=== PATIENT | female | born 1990 | race African-American/Black ===

== ENCOUNTER 2019-08-01 19:42 | Emergency (ER) | payer OTHER ==
[~2019-08-01] VITALS: Ht 162.6 cm; Wt 64.0 kg
--- NOTE | 2019-08-01 19:51 | NUR ---
28 YEAR OLD FEMALE COMPLAINS OF ABDOMINAL PAIN SINCE 3AM. PATIENT STATES ABDOMINAL PAIN 10/10. BOWEL SOUNDS ACTIVE X4, TENDER ON PALPATION, NONDISTENDED, SOFT. PATIENT CRYING AND STATES "IT HURTS." PATIENT STATES SOMETIMES SHE WOULD PASS OUT FROM PAIN. PATIENT STATES SHE HAS BEEN VOMITTING CONSISTENTLY THROUGHOUT DAY. PATIENT AOX4, BREATHING EVEN AND LABORED, SKIN WARM AND DRY. BED IN LOWEST POSITION, LOCKED, BED RAIL UPX1.
[2019-08-01] MEDS ORDERED: NACL 0.9% 1,000 ML IV SCH (20:07)
[2019-08-01] MEDS ORDERED: MORPHINE SULFATE 4 MG/ML SYR IVP ONE (20:10)
[2019-08-01] MEDS ORDERED: ONDANSETRON 4 MG/2 ML VIAL IVP ONE (20:10)
[2019-08-01 20:39] LABS: BASOPHILS % (AUTO) 0.4 % (0.0-2.0); EOSINOPHILS % (AUTO) 0.4 % (0.0-4.0); HEMATOCRIT 41.5 % (36-48); HEMOGLOBIN 13.5 g/dL (12.0-16.0); LYMPHOCYTES # (AUTO) 2.5 K/uL (2.5-16.5); LYMPHOCYTES % (AUTO) 33.4 % (20.5-51.1); MEAN CORPUSCULAR HEMOGLOBIN 29 pg (27-31); MEAN CORPUSCULAR HGB CONC 33 g/dL (33-37); MEAN CORPUSCULAR VOLUME 88.1 fL (80-94); MONOCYTES # (AUTO) 0.4 K/uL (0.8-1.0); MONOCYTES % (AUTO) 5.3 % (1.7-9.3); NEUTROPHILS # (AUTO) 4.5 K/uL (1.8-7.7); NEUTROPHILS % (AUTO) 60.5 % (42.2-75.2); PLATELET COUNT (AUTO) 232 K/uL (140-450); RED BLOOD CELL COUNT(AUTO) 4.71 MIL/uL (4.20-5.40); RED CELL DISTRIBUTION WIDTH 13.9 % (11.6-13.7); WHITE BLOOD COUNT (AUTO) 7.5 K/uL (4.8-10.8)
--- NOTE | 2019-08-01 21:15 | NUR ---
PATIENT AOX4, BREATHING EVEN AND UNLABORED, SKIN WARM AND DRY.
[2019-08-01 21:19] LABS: ALBUMIN 4.5 g/dL (3.4-5.0); ANION GAP 16.3 (8-16); CARBON DIOXIDE 22.6 mmol/L (21-32); CREATININE 0.7 mg/dL (0.6-1.3); POTASSIUM 3.9 mmol/L (3.5-5.1); TOTAL BILIRUBIN 0.6 mg/dL (0.0-1.0)
[2019-08-01] MEDS ORDERED: METOCLOPRAMIDE 10 MG/2 ML INJ VIAL IVP ONE (21:20)
[2019-08-01 21:39] VITALS: BP 143/96
[2019-08-01 21:46] LABS: APPEARANCE,URINE CLEAR (CLEAR); BILIRUBIN,URINE NEGATIVE (NEGATIVE); BLOOD, URINE NEGATIVE (NEGATIVE); COLOR,URINE YELLOW (YELLOW); LEUKOCYTE ESTERASE ,URINE NEGATIVE (NEGATIVE); NITRITE, URINE NEGATIVE (NEGATIVE); UGLUCOSE NEGATIVE (NEGATIVE)
[2019-08-01] MEDS ORDERED: HALOPERIDOL IM 5 MG/ML VIAL IVP ONE (22:00)
--- NOTE | 2019-08-01 23:10 | NUR ---
PATIENT AOX4, BREATHING EVEN AND UNLABORED. PATIENT STATES SHE FEELS MUCH BETTER WITHOUT NAUSEA AND WITHOUT PAIN
--- NOTE | 2019-08-01 23:10 | NUR ---
MOTHER IS TALKING TO PATIENT ON PHONE
--- NOTE | 2019-08-02 00:10 | NUR ---
PATIENT AOX4, BREATHING EVEN ANDUNLABORED. PATIENT STATES FEELS MUCH BETTER NOW
--- NOTE | 2019-08-02 01:10 | NUR ---
ALL RESULTS BACK AND NOTED BY ERMD AND FOR D/C
[2019-08-02 01:35] VITALS: BP 122/82
--- NOTE | 2019-08-02 01:35 | NUR ---
Patient discharged with v/s stable. Written and verbal after care instructions given and explained. Patient alert, oriented and verbalized understanding of instructions. Ambulatory with steady gait. All questions addressed prior to discharge. ID band removed. Patient advised to follow up with PMD. Rx of IBUPROFEN 600MG given. Patient educated on indication of medication including possible reaction and side effects. Opportunity to ask questions provided and answered.
== END 2019-08-02 01:35 | disposition home or self-care (01) ==
LOC: MED 19:42
DX: R10.9 Unspecified abdominal pain (principal); R11.2 Nausea with vomiting, unspecified; R50.9 Fever, unspecified; Z98.890 Other specified postprocedural states
CPT/HCPCS: 36415; 74177; 80053; 81003; 83690; 84703; 85025; 96361; 96374; 96375; 99285; J1630; J2270; J7030; Q9967; J2765